=== PATIENT | female | born 1955 | race Caucasian/White ===

== ENCOUNTER 2021-03-31 09:59 | Emergency (ER) | payer MEDICARE ==
[~2021-03-31] VITALS: Ht 165.1 cm; Wt 60.0 kg
[2021-03-31 10:01] VITALS: BP 154/93
[2021-03-31] MEDS ORDERED: CEPH-585 PO (11:05)
[2021-03-31] MEDS ORDERED: SULF1TAB49 PO (11:05)
== END 2021-03-31 11:18 | disposition home or self-care (01) ==
LOC: ER 09:59
DX: L02.01 Cutaneous abscess of face (principal); L03.211 Cellulitis of face; Z79.2 Long term (current) use of antibiotics; Z79.899 Other long term (current) drug therapy
CPT/HCPCS: 99283